=== PATIENT | male | born 2000 | race Caucasian/White ===

== ENCOUNTER 2024-11-28 12:50 | Emergency (ER) | payer SELFPAY ==
[2024-11-28 13:03] VITALS: BP 115/64; PULSE 67; RESP 18; TEMP 98; BMI 22.6
[2024-11-28 16:26] LABS: ABSOLUTE IMMATURE GRANULOCYTES 0.03 x10^3/uL (0.0-0.031); BASOPHILS # 0.05 x10^3/uL (0.01-0.08); EOSINOPHIL % 1.1 % (0.8-7.0); EOSINOPHILS # 0.08 x10^3/uL (0.04-0.54); MCHC 32.9 g/dl (32.3-36.5); MEAN CELL VOLUME 86.0 fl (79.0-92.2); MEAN PLT VOLUME 9.6 fl (9.4-12.4); MONOCYTE # 0.63 x10^3/uL (0.30-0.82); MONOCYTE % 8.7 % (5.3-12.2); RDW 12.6 % (11.9-15.3)
[2024-11-28 16:28] LABS: URINE APPEARANCE CLEAR; URINE BILIRUBIN NEGATIVE (NEGATIVE); URINE COLOR YELLOW; URINE GLUCOSE (UA) NEGATIVE (NEGATIVE); URINE KETONE NEGATIVE (NEGATIVE); URINE LEUK ESTERASE NEGATIVE (NEGATIVE); URINE NITRITE NEGATIVE (NEGATIVE); URINE PROTEIN NEGATIVE (NEGATIVE); URINE UROBILINOGEN 0.2 mg/dL (0.2-1.0)
[2024-11-28 16:46] LABS: GLUCOSE,RANDOM 81.0 mg/dL (74-106)
[2024-11-28 16:47] LABS: TOT PROT 8.5 g/dl (6.4-8.2)
[2024-11-28 16:48] LABS: CO2 26.0 mmol/L (21-32)
[2024-11-28 16:49] LABS: ALK PHOS 81.0 U/L (40-150)
[2024-11-28 16:52] LABS: CREATININE 0.62 mg/dL (0.55-1.3); SGPT/ALT 30.0 U/L (0-55)
[2024-11-28 17:10] LABS: HCV DIAGNOSTIC IN-HOUSE W/RFLX NON-REACTIVE (NONREACTIVE); HIV INTERPRETATION NEGATIVE (NEGATIVE)
[2024-11-28 17:33] LABS: SGOT/AST 49.0 U/L (5-34)
[2024-11-28] MEDS ORDERED: DOXYCYCLINE HYCLATE 100 MG TABLET PO ONE (18:10)
[2024-11-28] MEDS: DOXYCYCLINE HYCLATE 100 MG TABLET PO ONE (18:18)
== END 2024-11-28 18:31 | disposition home or self-care (01) ==
LOC: JER 12:50
DX: N50.811 Right testicular pain (principal); R10.31 Right lower quadrant pain; R10.32 Left lower quadrant pain; R10.24 Suprapubic pain
CPT/HCPCS: 36415; 76870-TC; 80053; 81003; 85025; 86803; 87086; 87389; 87491; 87591; 99285-25